=== PATIENT | female | born 1960 | race Caucasian/White ===

== ENCOUNTER 2018-02-19 08:24 | Outpatient (CLI) | payer OTHER ==
--- NOTE | 2018-02-19 09:52 | XRAY Report ---
CERVICAL SPINE: 02/19/2018 CLINICAL INDICATION: Arthritis. FINDINGS: AP, lateral, odontoid views of the cervical spine were obtained. Oblique views were inadvertently obtained. There is straightening of the normal cervical lordosis. There is osseous fusion of the C6-7 disk space. Degenerative changes are present, with disk space narrowing worst at C5-6. The prevertebral soft tissues are unremarkable. There is mild osseous neural foraminal narrowing at C5-6, right worse than left. There is no evidence of fracture. IMPRESSION: DEGENERATIVE CHANGES. OSSEOUS FUSION OF THE C6-7 DISC SPACE, WHICH MAY BE CONGENITAL. NO EVIDENCE OF ACUTE FRACTURE. TD: 02/19/2018 09:38
== END 2018-02-19 08:25 | disposition home or self-care (01) ==
LOC: DI 08:24
PROVIDERS: ATTEND Family Medicine
DX: M46.92 Unspecified inflammatory spondylopathy, cervical region (principal); M43.22 Fusion of spine, cervical region
CPT/HCPCS: 72040

== ENCOUNTER 2021-02-17 08:00 | Outpatient (CLI) | payer BC, OTHER ==
[2021-02-17 13:16] LABS: THYROID STIMULATING HORMONE 1.38 uIU/mL (0.34-5.60)
== END 2021-02-17 08:01 | disposition home or self-care (01) ==
LOC: LAB.N 08:00
PROVIDERS: ATTEND Family Medicine
DX: R22.1 Localized swelling, mass and lump, neck (principal)
CPT/HCPCS: 36415; 84443

== ENCOUNTER 2021-03-06 07:47 | Outpatient (CLI) | payer BC ==
--- NOTE | 2021-03-06 17:22 | Ultrasound Report ---
PROCEDURE: Head or Neck Soft Tissue INDICATIONS: NECK SWELLING TECHNIQUE: Real-time scanning was performed of the thyroid gland, with image documentation. COMPARISON: None FINDINGS: Right: Thyroid lobe measures 3.7 x 1.5 x 1.4 cm, and is homogeneous in echotexture. Left: Thyroid lobe measures 3.9 x 1.4 x 1.1 cm, and is homogenous in echotexture. Isthmus: 3 mm thick. Nodule number: One Location: Right mid Size: 0.6 x 0.5 x 0.3 cm. Composition: Solid Echogenicity: Hypoechoic Shape: wider than tall. Margins: Smooth Echogenic foci: None Total points: 4 ACR TI-RADS category: TR 4. Moderately suspicious. Nodule number: 2 Location: Right mid Size: 0.5 x 0.4 x 0.3 cm. Composition: Solid Echogenicity: Hypoechoic Shape: wider than tall. Margins: Smooth Echogenic foci: None Total points: 4 ACR TI-RADS category: TR 4. Moderately suspicious. Palpable lump at the site of clinical concern in corresponds to a submandibular cyst measuring 0.3 cm . There is no internal vascularity. IMPRESSION: 1. Palpable abnormality corresponds to a small submandibular cyst measuring 0.3 cm. Suspect sebaceous cyst. 2. Subcentimeter thyroid nodules not meeting criteria for imaging follow-up. ACR TI-RADS definitions and recommendations: TI-RADS 1 (benign): 0 points. FNA not needed. TI-RADS 2 (not suspicious): 2 points. FNA not needed. TI-RADS 3 (mildly suspicious): 3 points. ? FNA if 2.5 cm or larger, follow up if 1.5 cm or larger (at 1, 3, and 5 years). TI-RADS 4 (moderately suspicious): 4-6 points. ? FNA if 1.5 cm or larger, follow up if 1 cm or larger (at 1, 2, 3, and 5 years). TI-RADS 5 (highly suspicious): 7 points or more. ? FNA if 1 cm or larger, follow up if 0.5 cm or larger (every year for 5 years). Reviewed by: Hill Conn MD on 03/06/2021 5:20 PM PDT Approved by: Hill Conn MD on 03/06/2021 5:20 PM PDT Station ID: [id number]
== END 2021-03-06 07:48 | disposition home or self-care (01) ==
LOC: DI 07:47
PROVIDERS: ATTEND Family Medicine
DX: K11.6 Mucocele of salivary gland (principal); E04.2 Nontoxic multinodular goiter